=== PATIENT | female | born 1990 | race American Indian/Alaskan Native ===

== ENCOUNTER 2017-04-26 10:22 | Inpatient (IN) | payer OTHER ==
--- NOTE | 2017-04-26 11:03 | HP ---
Past Medical History - Primary Care Physician PCP:: Rehana Mitchell - Admission Chief Complaint: Gestational DM A2. IUP at 39 weeks History Source: Patient - Past Medical History ...: 2 ...Para: 0 ...Spon : 1 ...LMP: 07/26/16 ... Weeks Gestation by Dates: 39.1 ...EDC by Dates: 05/02/17 Endocrine: Yes: Diabetes Mellitus (A2 gestattional DM) - Past Surgical History Past Surgical History: Yes: None Hx Myomectomy: No Hx Transabdominal Cerclage: No - Smoking History Have you smoked in the past 12 months: No - Alcohol/Substance Use Hx Alcohol Use: No - Social History Usual Living Arrangement: Yes: With Spouse History of Recent Travel: No Home Medications - Allergies Allergies/Adverse Reactions: Allergies Allergy/AdvReac Type Severity Reaction Status Date / Time No Known Allergies Allergy Verified 04/26/17 12:04 - Home Medications Home Medications: Ambulatory Orders Ferrous Sulfate [Feosol] 325 mg PO DAILY MDD 1 04/22/17 Vit 93/Iron Fum/Folic [ Formula Tablet] 1 each PO DAILY Ibuprofen 600 mg PO TID PRN #20 tablet 04/26/17 Metformin HCl 500 mg PO BID 04/26/17 Review of Systems - Review of Systems Constitutional: reports: No Symptoms Eyes: reports: No Symptoms HENT: reports: No Symptoms Neck: reports: No Symptoms Cardiovascular: reports: No Symptoms Respiratory: reports: No Symptoms Gastrointestinal: reports: No Symptoms Genitourinary: reports: No Symptoms Breasts: reports: No Symptoms Reported Musculoskeletal: reports: No Symptoms Integumentary: reports: No Symptoms Neurological: reports: No Symptoms Endocrine: reports: No Symptoms Hematology/Lymphatic: reports: No Symptoms Psychiatric: reports: No Symptoms Physical Exam - Maternity Constitutional: Yes: Well Nourished, No Distress HENT: Yes: WNL Neck: Yes: WNL Cardiovascular: Yes: WNL Lungs: Clear to auscultation - Abdominal Exam/OB Number of Fetuses: Single Presentation: Vertex Contractions: No Monitor Mode: External Heart Rate (range): 140 Heart Rate Location: [facility] Category: I Accelerations: Non-Uniform Decelerations: None - Vaginal Exam/OB Speculum Exam: No Dilatation (cm): closed Effacement (%): 50 Amniotic Membrane Status: Intact Presentation: Vertex/Position (cervidil placed) Station: -1 - Physical Exam Musculoskeletal: Yes: WNL Extremities: Yes: WNL Edema: No Psychiatric: Yes: WNL, Alert, Oriented Hemorrhage Risk Assessment - Risk Factors Risk Score: 0 Risk Level: Low Risk Problem List - Problems (1) White classification A2 gestational diabetes mellitus (GDM) Code(s): O24.419 - GESTATIONAL DIABETES MELLITUS IN , UNSP CONTROL Assessment/Plan IUP at 38.2 week gestational DM A2 Hx of Ectoptic HIV neg GBS Cat 1 Plan admit for induction
[2017-04-26] MEDS ORDERED: PROMETHAZINE HCL 25 MG/1 ML VIAL IVPUSH ONE (11:04)
[2017-04-26] MEDS ORDERED: BUTORPHANOL TARTRATE 1 MG/ML VIAL IVPB ONE (11:04)
[2017-04-26] MEDS ORDERED: DINOPROSTONE 10 MG VAGINAL SUPPOSITORY VG ONE (11:05)
[2017-04-26] MEDS ORDERED: DEXTROSE 5%-LACTATED RINGERS 1,000 ML IV SCH (11:15)
[2017-04-26 11:54] LABS: BASO % 0.3 % (0-2.0); EOS % 1.2 % (0-4.5); HEMOGLOBIN 14.6 GM/dL (10.7-15.3); LYMPH % 24.5 % (8-40); MCH 28.1 pg (25.7-33.7); MEAN CELL VOLUME 82.7 fl (80-96); MEAN PLT VOLUME 9.1 fl (7.5-11.1); MONO % 7.3 % (3.8-10.2); NEUT % 66.7 % (42.8-82.8); PLATELET COUNT 188 K/MM3 (134-434); RDW 13.5 % (11.6-15.6); WHITE BLOOD COUNT 7.6 K/mm3 (4.0-10.0)
[2017-04-26 12:06] LABS: INR 0.92 (0.82-1.09); PROTHROMBIN TIME (PATIENT) 10.4 SEC (9.98-11.88)
[2017-04-26 12:09] LABS: ACTIVATED PTT 30.2 SECONDS (26.9-34.4)
[2017-04-26 12:23] LABS: ANION GAP 12 (8-16); BLOOD UREA NITROGEN 9 mg/dL (7-18); CALCIUM 8.7 mg/dL (8.5-10.1); CHLORIDE 107 mmol/L (98-107); CO2 20 mmol/L (21-32); CREATININE 0.4 mg/dL (0.55-1.02); GLUCOSE,RANDOM 95 mg/dL (74-106); POTASSIUM 3.9 mmol/L (3.5-5.1); SODIUM 139 mmol/L (136-145)
[2017-04-26 12:42] VITALS: BMI 27.6
[2017-04-26] MEDS ORDERED: LACTATED RINGERS SOLUTION 1,000 ML IV SCH (14:00)
[2017-04-26] MEDS ORDERED: TUBERCULIN PPD 5 TU/0.1ML SYRINGE (IN PATIENT USE ONLY) ID ONE (14:30)
[2017-04-26] MEDS ORDERED: BUTORPHANOL TARTRATE 1 MG/ML VIAL ONE ×2 (17:02)
[2017-04-26] MEDS ORDERED: PROMETHAZINE HCL 25 MG/1 ML VIAL ONE (17:03)
[2017-04-26] MEDS ORDERED: OXYTOCIN 20 UNITS in 0.9% NS 20 UNIT/1,000 ML INFUS.BAG IV ONE ×2 (20:08→20:40)
[2017-04-26] MEDS ORDERED: LIDOCAINE HCL 1% PRESERVATIVE FREE - 30ML VIAL ONE (20:09)
[2017-04-26] MEDS ORDERED: BENZOCAINE 28 GM HEMORRHOIDAL OINTMENT PR PRN (21:07)
[2017-04-26] MEDS ORDERED: BISACODYL 10 MG SUPP.RECT PR PRN (21:07)
[2017-04-26] MEDS ORDERED: BENZOCAINE 20% 57 GM BOTTLE TP PRN (21:07)
[2017-04-26] MEDS ORDERED: WITCH HAZEL 50% (TUCKS) 40 PAD/JAR PAD TP PRN (21:07)
[2017-04-26] MEDS ORDERED: METHYLERGONOVINE MALEATE 0.2 MG/1 ML AMP IM PRN (21:07)
[2017-04-27] MEDS: IBUPROFEN 600 MG TABLET (FP) PO PRN ×3 (00:11→21:05)
[2017-04-27] MEDS: ACETAMINOPHEN 325 MG TABLET (FP) PO PRN ×3 (00:13→21:05)
--- NOTE | 2017-04-27 07:14 | PN ---
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 - 1 Minute Total Score: 9 5 Minutes Total Score: 9 - Feeding Plan Initial Plan: Elected not to breastfeed exclusively throughout hospitalization
--- NOTE | 2017-04-27 07:15 | PN ---
Post Note - Post Date of Delivery: 04/26/17 Post Day: 1 Vital Signs: Vital Signs - 24 hr 04/26/17 04/26/17 04/26/17 10:50 13:10 14:00 Temperature 98.1 F 98.9 F 97.9 F Pulse Rate 89 82 104 H Pulse Rate [ 82 Left Brachial] Respiratory 18 18 18 Rate Blood Pressure 116/67 114/68 118/59 Blood Pressure 121/70 [Left Upper Arm ] O2 Sat by Pulse Oximetry (%) 04/26/17 04/26/17 04/26/17 15:00 16:00 17:00 Temperature Pulse Rate 100 H 114 H 112 H Pulse Rate [ Left Brachial] Respiratory 20 20 Rate Blood Pressure 122/69 137/87 128/88 Blood Pressure [Left Upper Arm ] O2 Sat by Pulse Oximetry (%) 04/26/17 04/26/17 04/26/17 18:00 19:00 21:00 Temperature 98.3 F Pulse Rate 118 H 116 H 113 H Pulse Rate [ Left Brachial] Respiratory 20 20 20 Rate Blood Pressure 133/84 139/82 140/88 Blood Pressure [Left Upper Arm ] O2 Sat by Pulse 99 Oximetry (%) 04/26/17 04/26/17 04/26/17 21:15 21:30 21:39 Temperature 98.9 F Pulse Rate 115 H 109 H 102 H Pulse Rate [ Left Brachial] Respiratory 20 20 20 Rate Blood Pressure 136/84 139/92 133/90 Blood Pressure [Left Upper Arm ] O2 Sat by Pulse Oximetry (%) 04/26/17 04/27/17 04/27/17 23:00 02:00 06:00 Temperature 98.9 F 98.5 F 98.6 F Pulse Rate 115 H 114 H 108 H Pulse Rate [ Left Brachial] Respiratory 18 18 18 Rate Blood Pressure 132/82 110/70 105/62 Blood Pressure [Left Upper Arm ] O2 Sat by Pulse Oximetry (%) Labs: Laboratory Results - last 24 hr 04/26/17 04/26/17 04/26/17 10:34 11:35 11:35 WBC 7.6 RBC 5.20 Hgb 14.6 Hct 43.0 MCV 82.7 MCH 28.1 MCHC 34.0 RDW 13.5 Plt Count 188 MPV 9.1 Neutrophils % 66.7 Lymphocytes % 24.5 Monocytes % 7.3 Eosinophils % 1.2 Basophils % 0.3 PT with INR 10.40 INR 0.92 PTT (Actin FS) 30.2 Sodium Potassium Chloride Carbon Dioxide Anion Gap BUN Creatinine POC Glucometer 99 Random Glucose Calcium RPR Titer Blood Type Antibody Screen 04/26/17 04/26/17 04/26/17 11:35 11:35 11:35 WBC RBC Hgb Hct MCV MCH MCHC RDW Plt Count MPV Neutrophils % Lymphocytes % Monocytes % Eosinophils % Basophils % PT with INR INR PTT (Actin FS) Sodium 139 Potassium 3.9 Chloride 107 Carbon Dioxide 20 L Anion Gap 12 BUN 9 Creatinine 0.4 L POC Glucometer Random Glucose 95 Calcium 8.7 RPR Titer Nonreactive Blood Type A POSITIVE Antibody Screen Negative 04/26/17 04/26/17 04/26/17 12:50 14:39 17:43 WBC RBC Hgb Hct MCV MCH MCHC RDW Plt Count MPV Neutrophils % Lymphocytes % Monocytes % Eosinophils % Basophils % PT with INR INR PTT (Actin FS) Sodium Potassium Chloride Carbon Dioxide Anion Gap BUN Creatinine POC Glucometer 85 114 Random Glucose Calcium RPR Titer Blood Type A POSITIVE Antibody Screen - Subjective Subjective: No Complaints - Objective Afebrile: Yes Breast: Not engorged Abdomen: Soft Uterus: Fundus firm Vagina: Scant lochia Extremities: Non-tender - Assessment/Plan (1) White classification A2 gestational diabetes mellitus (GDM) Assessment: S/P Normal Plan: Routine Care
[2017-04-27 07:59] LABS: BASO % 0.4 % (0-2.0); EOS % 0.2 % (0-4.5); HEMATOCRIT 35.7 % (32.4-45.2); HEMOGLOBIN 12.1 GM/dL (10.7-15.3); LYMPH % 14.5 % (8-40); MCH 28.1 pg (25.7-33.7); MCHC 33.9 g/dl (32.0-36.0); MEAN CELL VOLUME 82.7 fl (80-96); MEAN PLT VOLUME 9.4 fl (7.5-11.1); NEUT % 77.9 % (42.8-82.8); PLATELET COUNT 179 K/MM3 (134-434); RBC 4.32 M/mm3 (3.60-5.2); RDW 13.7 % (11.6-15.6); WHITE BLOOD COUNT 13.9 K/mm3 (4.0-10.0)
[2017-04-27] MEDS ORDERED: ACETAMINOPHEN 325 MG TABLET (FP) PO ONE (08:20)
[2017-04-27] MEDS ORDERED: oxyCODONE HCL 5 MG TABLET PO ONE (08:20)
[2017-04-27] MEDS ORDERED: DIPHTH,PERTUSS(ACELL),TET 0.5 ML DISP.SYRIN IM ONE (10:00)
[2017-04-27 20:45] VITALS: TEMP 98.2
--- NOTE | 2017-04-28 08:06 | DS ---
Physical Exam-SCRUB WOMAN Vital Signs: Vital Signs Temperature 98.2 F 04/27/17 20:44 Pulse Rate 100 H 04/27/17 20:44 Respiratory Rate 20 04/27/17 20:44 Blood Pressure 114/57 04/27/17 20:44 O2 Sat by Pulse Oximetry (%) 99 04/26/17 21:00 Constitutional: Yes: Well Nourished Eyes: Yes: Conjunctiva Clear HENT: Yes: Atraumatic Neck: Yes: Supple Cardiovascular: Yes: Regular Rate and Rhythm Respiratory: Yes: Regular Gastrointestinal: Yes: Normal Bowel Sounds Pelvis: Yes: WNL External Genitalia: Yes: Normal Vaginal Exam: Yes: Normal Cervix: Yes: Normal Uterus: Yes: Firm ....Post : Yes: Uterus firm, Moderate lochia serosa Breast(s): Yes: WNL Neurological: Yes: Alert, Oriented ...Motor Strength: WNL Psychiatric: Yes: Alert, Oriented Labs: CBC, BMP 04/27/17 06:00 04/26/17 11:35 Delivery - Delivery Vaginal Delivery: No Problems Type of Anesthesia: Local Episiotomy/Laceration: Right Mediolateral EBL (cc): 300 Delivery, Single - Stages of Labor Date 1st Stage Initiatied: 04/26/17 Time 1st Stage Initiated: 17:00 Date 2nd Stage Initiated: 04/26/17 Time 2nd Stage Initiated: 20:15 Date of Delivery: 04/26/17 Time of Delivery: 20:35 Time Placenta Delivered: 20:40 - Condition of Vulcanizing Machine Operator/Invoicing Machine Operator Present: [place]: Ghulam De Jesus Infant Gender: Male Weight: 7 lb 9 oz Position: OA Total Hours ROM (Hrs/Mins): 25mins. - 1 Minute Total Score: 9 5 Minutes Total Score: 9 - [place] Feeding Plan Initial Plan: Elected not to breastfeed exclusively throughout hospitalization Discharge Summary Reason For Visit: LABOR INDUCTION/ GESTATIONAL DIABETIC Current Active Problems White classification A2 gestational diabetes mellitus (GDM) (Acute) Procedures: Principal: Normal spontaneous vaginal delivery Hospital Course: Routine care Condition: Good - Instructions Diet, Activity, Other Instructions: Physical activity Resume your normal everyday activity as tolerated no heavy lifting or exercise until seen by your surgeon. You may walk unlimited radha of and climb stairs. You may resume driving the car when you feel safe and comfortable behind the wheel. No sexual activity as instructed. Wound care If you have a bandage, leave it on, and keep dry for 48-72 hours. After that time discard the outer bandage. If they are tapes on the skin under the out of bandage leave them in place. They will peel off in the next 7 to 10 days. Do Not Peel them off. You may shower the day after surgery. If there are tapes present on the skin, you may shower over them. Diet There are no dietary restrictions. Eat healthy, high-fiber foods. Drink 6 to 8 glasses of liquid each day. This will assist in keeping your bowels are regular. Pain management You may take Tylenol or acetaminophen or Ibuprofen (for example, Motrin, Advil etc.) from my pain prescription medication is ordered should be taken as prescribed for moderate to severe pain. Call MD for any of the following: Severe pain not relieved by medication Fever of 101 or higher Excessive bleeding or drainage on dressing Inability to urinate Disposition: HOME - Home Medications Comprehensive Discharge Medication List: Ambulatory Orders Ferrous Sulfate [Feosol] 325 mg PO DAILY MDD 1 04/22/17 Vit 93/Iron Fum/Folic [ Formula Tablet] 1 each PO DAILY Ibuprofen 600 mg PO TID PRN #20 tablet 04/26/17 Metformin HCl 500 mg PO BID 04/26/17
[2017-04-28] MEDS: IBUPROFEN 600 MG TABLET (FP) PO PRN (09:00)
[2017-04-28] MEDS: ACETAMINOPHEN 325 MG TABLET (FP) PO PRN (09:02)
[2017-04-28 13:16] VITALS: BP 113/84; PULSE 84
== END 2017-04-28 13:25 | disposition home or self-care (01) | DRG 774 ==
LOC: JDEL 10:22 → JLDR 10:50 → J3W 22:56
PROVIDERS: ADMIT Obstetrics & Gynecology; ATTEND Obstetrics & Gynecology
PROC: 10E0XZZ Delivery of Products of Conception, External Approach (ICD-10-PCS; principal; 2017-04-26)
PROC: 0W8NXZZ Division of Female Perineum, External Approach (ICD-10-PCS; 2017-04-26)
DX: O24.415 Gestational diabetes mellitus in pregnancy, controlled by oral hypoglycemic drugs (principal); Z3A.39 39 weeks gestation of pregnancy; Z37.0 Single live birth; Z79.84 Long term (current) use of oral hypoglycemic drugs
CPT/HCPCS: 36415; 59409; 80048; 82962; 85025; 85610; 85730; 86593; 86850; 86900; 86901; 90715